=== PATIENT | female | born 1985 | race Two or more races ===

== ENCOUNTER 2025-05-25 12:22 | Emergency (ER) | payer OTHER ==
[~2025-05-25] VITALS: Ht 172.7 cm; Wt 106.5 kg
[2025-05-25 13:39] VITALS: BP 148/93; PULSE 96; RESP 19; TEMP 98.4; O2SAT 96
--- NOTE | 2025-05-25 14:00 | ED.PDOC ---
Musculoskeletal HPI Comments A 39 YEAR OLD FEMALE PRESENTS TO THE ED WITH COMPLAINT OF LEFT 3RD FINGER PAIN AND SWELLING. PATIENT STATES SHE WAS HOLDING HER DOG'S COLLAR AND HER LEFT 3RD FINGER WAS TWISTED THE WRONG WAY 3 WEEKS AGO. PATIENT REPORTS SHE IS NOW EXPERIENCING LEFT 3RD FINGER PAIN AND SWELLING. PATIENT DENIES FEVER, CHILLS, SHORTNESS OF BREATH, CHEST PAIN, ABDOMINAL PAIN, NAUSEA, VOMITING, HEADACHE, OR OTHER COMPLAINTS. NO OTHER SYMPTOMS OR MODIFYING FACTORS AT THIS TIME. PATIENT IS ALERT, ORIENTED X 4, AND HAS STEADY GAIT. Chief Complaint: Upper Extremity Time Seen by MD: 12:30 Reviewed Notes: Nurses Notes, Medications, Allergies Allergies: Coded Allergies: NO KNOWN ALLERGIES (Unverified , 05/25/25) Information Source: Patient Mode of Arrival: Ambulatory Location: Left Extremity Location: Finger 3 Timing: Weeks Prehospital treatment: None Severity: Moderate Able to Move Extremity: Yes Bear Weight: Fully Pain: Moderate Mechanism: Twisting Circumstances: Accident Onset of Symptoms: After Trauma Symptoms: Swelling, Pain DVT Risk Factors: NONE Last Tetanus: Unknown Associated signs and symptoms: None Past Medical History PAST MEDICAL HISTORY: Denies Surgical History: Denies all surgeries RN CORRECTIONAL History: No Pertinent RN CORRECTIONAL History Family History Family History: Reviewed,noncontributory to illness Social History Smoker: Non-Smoker Alcohol: Denies ETOH Use Drugs: Denies Drug Use Lives In: Home Constitutional: denies: chills, diaphoresis, fatigue, fever, malaise, sweats, weakness, others EENTM: denies: blurred vision, double vision, ear bleeding, ear discharge, ear drainage, ear pain, ear ringing, eye pain, eye redness, hearing loss, mouth pain, mouth swelling, nasal discharge, nose bleeding, nose congestion, nose pain, photophobia, tearing, throat pain, throat swelling, voice changes, others Respiratory: denies: cough, hemoptysis, orthopnea, SOB at rest, shortness of breath, SOB with excertion, stridor, wheezing, others Cardiovascular: denies: chest pain, dizzy spells, diaphoresis, Dyspnea on e xertion, edema, irregular heart beat, left arm pain, lightheadedness, palpitations, PND, syncope, others Gastrointestinal: denies: abdomen distended, abdominal pain, blood streaked bowels, constipated, diarrhea, dysphagia, difficulty swallowing, hematemesis, melena, nausea, poor appetite, poor fluid intake, rectal bleeding, rectal pain, vomiting, others Genitourinary: denies: abnormal vagina bleeding, burning, dyspareunia, dysuria, flank pain, frequency, hematuria, incontinence, pain, , vagina discharge, urgency, others Neurological: denies: dizziness, fainting, headache, left sided numbness, left sided weakness, numbness, paresthesia, pre-existing deficit, right sided numbness, right sided weakness, seizure, speech problems, tingling, tremors, weakness, others Musculoskeletal: reports: joint pain, joint swelling, others (LEFT 3RD FINGER PAIN AND SWELLING); denies: back pain, gout, muscle pain, muscle stiffness, neck pain Integumetry: denies: bruises, change in color, change in hair/nails, dryness, laceration, lesions, lumps, rash, wounds, others Allergic/Immunocompromised: denies: Difficulty Healing, Frequent Infections, Hives, Itching, others Hematologic/Lymphatic: denies: anemia, blood clots, easy bleeding, easy bruising, swollen glands, others Endocrine: denies: excessive hunger, excessive sweating, excessive thirst, excessive urination, flushing, intolerance to cold, intolerance to heat, u nexplained weight gain, unexplained weight loss, others Psychiatric: denies: anxiety, bipolar disorder, depression, hopeless, panic disorder, schizophrenia, sleepless, suicidal, others All Other Systems: Reviewed and Negative Physical Exam General Appearance: No Apparent Distress, Normal HEENT: Normal ENT Inspection, PERRL/EOMI, Pharynx Normal, TMs Normal Neck: Full Range of Motion, Non-Tender, Normal, Normal Inspection Respiratory: Chest Non-Tender, Lungs Clear, No Accessory Muscle Use, No Respiratory Distress, Normal Breath Sounds Cardiovascular: No Edema, No JVD, No Murmur, No Gallop, Normal Peripheral Pulses, Regular Rate/Rhythm Breast Exam: Deferred Gastrointestinal: No Organomegaly, Non Tender, No Pulsatile Mass, Normal Bowel Sounds, Soft Genitalia: Deferred Pelvic: Deferred Rectal: Deferred Extremities: Decreased range of motion, No calf tenderness, Normal capillary refill, No pedal edema, Swelling (BONY TENDERNESS AND SWELLING ON LEFT 3RD FINGER, NO DEFORMITY. ), Tender (AND SWELLING ON LEFT 3RD FINGER. ) Musculoskeletal : Apperance: Normal Neurologic: Alert, black topper II-XII nml as Tested, No Motor Deficits, Normal Affect, Normal Mood, No Sensory Deficits Cerebellar Function: Normal Reflexes: Normal Skin: Dry, Normal Color, Warm Peripheral Pulses: 2+ carotid (R), 2+ carotid (L), 2+ dorsalis pedis (R), 2+ dorsalis pedis (L) Lymphatic: No Adenopathy Was a procedure done? Was a procedure done?: No Differential Diagnosis EXT Differential Diagnosis: Fracture, Sprain, Dislocation, Contusion, Strain, Bursitis X-Ray, Labs, Meds, VS Vital Signs Date Time Temp Pulse Resp B/P (MAP) Pulse Ox O2 Delivery O2 Flow Rate FiO2 05/25/25 13:39 98.4 96 19 148/93 (111) 96 98.4 05/25/25 12:24 98.4 96 18 148/93 97 98.4 ORDERING PHYSICIAN: ALONDRA EDWARD PROCEDURE(s): LHAN - L HAND 3V XRAY REASON: INJURY X 3 WEEKS ORDER NUMBER(s): [id number], ACCESSION NUMBER(s): [id number] EXAM: XY L HAND 3V XRAY HISTORY: INJURY X 3 WEEKS COMPARISON: None available. TECHNIQUE: Three views of the left hand were performed. FINDINGS: Acute mildly displaced comminuted fracture involving the zumccshj-sv-sqpcuu aspect of the 3rd proximal phalanx with suspected intra-articular involvement of the 3rd proximal interphalangeal joint. No significant degenerative changes. Mild soft tissue swelling about the 3rd digit. IMPRESSION: Acute mildly displaced comminuted fracture involving the yjzkwmgm-jj-wixjda aspect of the 3rd proximal phalanx with suspected intra-articular involvement of the 3rd proximal interphalangeal joint. ATED BY: AIDEN NOE MD DICTATED DATE/TIME: 05/25/251417 SIGNED BY: AIDEN NOE MD SIGNED DATE/TIME: 05/25/251417 CC: X-Ray, Labs, Meds, VS Comment EXTERNAL MEDICAL RECORDS REVIEWED: [NONE] INDEPENDENT HISTORIANS: [NONE] SOCIAL DETERMINANTS OF HEALTH: [NONE] LABS ORDERED: NONE REVIEWED AND INTERPRETED RESULTS: NONE IMAGING ORDERED: XR HAND LT TREATMENTS ORDERED: FROG SPLINT APPLIED TO PATIENT'S LEFT 3RD FINGER PROCEDURES PERFORMED: NONE CRITICAL CARE TIME: NONE I HAVE DISCUSSED THE PATIENT WITH THE ATTENDING PHYSICIAN DR. TUTTLE AND HE AGREES WITH THE PATIENT'S PLAN OF CARE AND DISPOSITION. BASED ON HISTORY OF PRESENT ILLNESS, AND PHYSICAL EXAM, PATIENT WILL BE DISCHARGED HOME. DISCUSSED PLAN FOR DISCHARGE HOME WITH RX [IBUPROFEN 800 MG]. MEDICATION WARNINGS GIVEN. SHARED DECISION MAKING: DISCUSSED WITH PATIENT THAT THEIR WORKUP WAS NORMAL. PATIENT INSTRUCTED TO FOLLOW UP WITH PRIMARY CARE PROVIDER IN 1-2 DAYS FOR RE- EVALUATION OF SYMPTOMS. PATIENT VERBALIZES UNDERSTANDING TO RETURN TO ED FOR NEW OR WORSENING SYMPTOMS OR IF FOLLOW UP WITH PCP CANNOT BE OBTAINED. PATIENT FEELS COMFORTABLE GOING HOME AT THIS TIME. ALL QUESTIONS ADDRESSED AT TIME OF DISCHARGE. Images Reviewed?: Images reviewed and evaluated by me Time of 1ST Reevaluation: 14:30 Reevaluation 1ST: Improved Patient Education/Counseling: Diagnosis, Treatment, Need For Follow Up Family Education/Counseling: Diagnosis, Treatment, Need For Follow Up Departure 1 Departure Time of Disposition: 14:50 Impression: Primary Impression: Fracture of proximal phalanx of left middle finger Qualified Codes: S62.643A - Nondisplaced fracture of proximal phalanx of left middle finger, initial encounter for closed fracture Disposition: 01 HOME / SELF CARE / HOMELESS Condition: Stable Additional Instructions: FOLLOW-UP WITH PCP IN 1 TO 2 DAYS FOR REFERRAL TO [facility]. TAKE MEDICATIONS PRESCRIBED. RETURN TO ED FOR ANY NEW OR WORSENING SYMPTOMS. Discharged With: Self Critical Care Note Critical Care Time?: No Stability Stability form required: No I personally scribed for ALONDRA EDWARD ([email or web address]) on 05/25/25 at 14:00. Electronically submitted by Bal De Jesus ([email or web address]). I personally scribed for ALONDRA EDWARD ([email or web address]) on 05/25/25 at 14:25. Electronically submitted by Bal De Jesus ([email or web address]). ALONDRA EDWARD May 25, 2025 14:00
--- NOTE | 2025-05-25 14:20 | DVH ---
EXAM: XY L HAND 3V XRAY HISTORY: INJURY X 3 WEEKS COMPARISON: None available. TECHNIQUE: Three views of the left hand were performed. FINDINGS: Acute mildly displaced comminuted fracture involving the ylfnbgty-[id number]-[id number] aspect of the 3rd proximal phalanx with suspected intra-articular involvement of the 3rd proximal interphalangeal joint. No significant degenerative changes. Mild soft tissue swelling about the 3rd digit. IMPRESSION: Acute mildly displaced comminuted fracture involving the [id number]-yp-ryuhby aspect of the 3rd proximal phalanx with suspected intra-articular involvement of the 3rd proximal interphalangeal joint.
== END 2025-05-25 14:42 | disposition home or self-care (01) ==
LOC: ER 12:22
DX: S62.643A Nondisplaced fracture of proximal phalanx of left middle finger, initial encounter for closed fracture (principal); X50.1XXA Overexertion from prolonged static or awkward postures, initial encounter; Y93.89 Activity, other specified; Y92.89 Other specified places as the place of occurrence of the external cause; Y99.8 Other external cause status
CPT/HCPCS: 29130; 73130